=== PATIENT | female | born 1985 | race Caucasian/White ===

== ENCOUNTER 2018-01-14 18:27 | Emergency (ER) | payer MEDICAID, SELFPAY ==
[~2018-01-14] VITALS: Ht 162.6 cm; Wt 76.0 kg
[2018-01-14 19:15] VITALS: BP 106/73
[2018-01-14] MEDS ORDERED: DEXAMETHASONE 4 MG TABLET ONE (20:28)
[2018-01-14] MEDS ORDERED: DEXAMETHASONE 4 MG TABLET PO ONE (20:30)
== END 2018-01-14 20:33 | disposition home or self-care (01) ==
LOC: ED 20:27
DX: J02.0 Streptococcal pharyngitis (principal); R07.0 Pain in throat
CPT/HCPCS: 87880; 99283